=== PATIENT | male | born 1960 ===

== ENCOUNTER 2019-12-11 02:36 | Emergency (ER) ==
[~2019-12-11] VITALS: Ht 152.4 cm; Wt 61.2 kg
[2019-12-11] MEDS ORDERED: CARDIZEM CD180 MG PO (02:47)
[2019-12-11] MEDS ORDERED: MICARDIS80 MG PO (02:48)
--- NOTE | 2019-12-11 20:50 | EKG ---
[facility] [address] [facility] [place], [place] [address] Signed Normal sinus rhythm ST elevation, consider inferior injury or acute infarct ACUTE [place] / STEMI Consider right ventricular involvement in acute inferior infarct Abnormal ECG No previous ECGs available Confirmed by GIORGIO BAZAN DO ([id number]) on 12/11/2019 8:50:02 PM Electronically Signed By: GIORGIO BAZAN DO 12/11/192049 PATIENT NAME: JANE SHELDON Electrocardiogram DATE OF : 62 PHYSICIAN: GIORGIO BAZAN DO REPORT #: [id number] REPORT IS CONFIDENTIAL AND NOT TO BE RELEASED WITHOUT AUTHORIZATION
== END 2019-12-11 04:05 | disposition short-term general hospital (02) ==
LOC: ED 02:36
DX: I21.3 ST elevation (STEMI) myocardial infarction of unspecified site (principal); I10 Essential (primary) hypertension; F17.200 Nicotine dependence, unspecified, uncomplicated; Z79.899 Other long term (current) drug therapy
CPT/HCPCS: 71045; 80053; 83735; 84484; 85025; 93005; 93010; 96365; 96375; 96376; 99285-25; J1644